=== PATIENT | female | born 1930 | race Caucasian/White ===

== ENCOUNTER → 2016-05-30 | Outpatient (CLI) | payer MEDICARE ==
[~2016-05-30] MED LIST: ASCO500T21 PO; CARV3.12T PO; CETI10TA20 PO; IBP200T PO; LEVO75TA4 PO; LOSA100T8 PO; LOSA1TAB15 PO; LVT.1T PO; MULT-63 PO
--- NOTE | 2016-05-30 17:00 | Diagnostic Imaging Report ---
INDICATION: Right knee pain. AP, oblique, and lateral views of the right knee are obtained. There is mild medial and lateral joint space narrowing with osteophyte formation. There is mild patellofemoral spurring. There appears to be a small joint effusion. There is no acute fracture or acute bony abnormality. There are vascular calcifications noted. 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 Small joint effusion is present. Dictated by: Dictated on workstation # [id number]
== END ==
LOC: RAD 14:49
PROVIDERS: ATTEND Family Medicine
DX: M15.0 Primary generalized (osteo)arthritis (principal); M17.11 Unilateral primary osteoarthritis, right knee
CPT/HCPCS: 73562

== ENCOUNTER → 2016-05-30 | Outpatient (REF) | payer MEDICARE ==
[2016-05-30 15:49] LABS: BASOPHILS % (AUTO) 1 % (0-2); EOSINOPHILS # (AUTO) 0.4 10^3uL; EOSINOPHILS % (AUTO) 7 % (0-4); MEAN CORPUSCULAR HGB CONC 34.2 g/dL (31.0-37.0); MEAN CORPUSCULAR VOLUME 92 FL (80-100); MEAN PLATELET VOLUME 11.2 FL (6.0-9.5); MONOCYTES # (AUTO) 0.5 X10^3; MONOCYTES % (AUTO) 8 % (3-11); NEUTROPHILS # (AUTO) 3.8 X10^3; NEUTROPHILS % (AUTO) 67 % (51-67); PLATELET COUNT 266 10^3uL (150-450); WHITE BLOOD COUNT 5.64 10^3uL (4.0-11.0)
[2016-05-30 15:56] LABS: ALBUMIN 4.1 g/dL (3.4-5.0); ANION GAP 14.2 MEQ/L (3-15); CALCULATED IONIZED CALCIUM 4.5 mg/dL (3.8-4.6); TOTAL PROTEIN 6.5 g/dL (6.4-8.5)
[2016-05-30 16:09] LABS: MEAN CORPUSCULAR HEMOGLOBIN 31.5 PG (26.0-34.0)
== END ==
LOC: LAB 15:21
PROVIDERS: ATTEND Family Medicine
DX: I10 Essential (primary) hypertension (principal); I71.4 Abdominal aortic aneurysm, without rupture; E03.8 Other specified hypothyroidism
CPT/HCPCS: 80053; 84443; 85025

== ENCOUNTER → 2016-06-02 | Outpatient (CLI) | payer MEDICARE | LOC: RT 14:06 | PROVIDERS: ATTEND Family Medicine | DX: I10 Essential (primary) hypertension (principal); R00.2 Palpitations | CPT/HCPCS: 93225 ==

== ENCOUNTER → 2016-06-12 | Outpatient (REF) | payer MEDICARE ==
[2016-06-12 16:21] LABS: ANION GAP 14.6 MEQ/L (3-15)
== END ==
LOC: LAB 15:26
PROVIDERS: ATTEND Family Medicine
DX: I10 Essential (primary) hypertension (principal); Z13.0 Encounter for screening for diseases of the blood and blood-forming organs and certain disorders involving the immune mechanism
CPT/HCPCS: 80048

== ENCOUNTER → 2016-06-20 | Outpatient (CLI) | payer MEDICARE | LOC: RAD 12:52 | PROVIDERS: ATTEND Family Medicine | DX: J32.0 Chronic maxillary sinusitis (principal); H65.493 Other chronic nonsuppurative otitis media, bilateral | CPT/HCPCS: 70486 ==

== ENCOUNTER → 2016-07-21 | Outpatient (CLI) | payer MEDICARE | LOC: LAB 10:39 | PROVIDERS: ATTEND Family Medicine | DX: Z51.81 Encounter for therapeutic drug level monitoring (principal); I47.1 Supraventricular tachycardia; E87.1 Hypo-osmolality and hyponatremia | CPT/HCPCS: 36415; 80048; 80162 ==

== ENCOUNTER → 2016-08-23 | Outpatient (REF) | payer MEDICARE | LOC: LAB 14:58 | PROVIDERS: ATTEND Family Medicine | DX: I47.1 Supraventricular tachycardia (principal) | CPT/HCPCS: 80162 ==

== ENCOUNTER → 2016-08-29 | Outpatient (CLI) | payer MEDICARE ==
--- NOTE | 2016-08-29 10:58 | Diagnostic Imaging Report ---
PROCEDURE: US abdomen complete. TECHNIQUE: Multiple real-time grayscale images were obtained over the abdomen in various projections. INDICATION: Abdominal wall mass periumbilical region. History of previous hernia repair in this region. FINDINGS: Real-time imaging shows an echogenic structure measuring approximately 2 cm along the intra-abdominal rectus muscle. There is no obvious recurrent hernia. Liver appears normal. Bile ducts are not dilated. Common duct measures 3 mm. Gallbladder appears normal. Portal and hepatic vein are patent. Pancreas is not well visualized. The spleen appear normal. Aorta and vena cava are normal. The kidneys appear normal. The right kidney measures 8.4 x 3.8 x 5.2 cm. Left kidney measures 8.2 x 3.8 x 4.3 cm. IMPRESSION: 1. Echogenic area measuring approximately 2 cm along the anterior rectus muscle in the periumbilical region. This is nonspecific and findings on ultrasound. This could represent scarring from possible granuloma reaction. No obvious recurrent hernia. Would consider CT scan of the abdomen for further detail. 2. Gallbladder and liver appear normal as do the kidneys. Dictated by: Dictated on workstation # [id number]
== END ==
LOC: RAD 09:59
PROVIDERS: ATTEND Family Medicine
DX: R19.06 Epigastric swelling, mass or lump (principal)
CPT/HCPCS: 76700

== ENCOUNTER → 2016-10-13 | Outpatient (REF) | payer MEDICARE ==
[2016-10-13 16:30] LABS: BASOPHILS % (AUTO) 1 % (0-2); EOSINOPHILS # (AUTO) 0.4 10^3uL; EOSINOPHILS % (AUTO) 5 % (0-4); LYMPHOCYTES # (AUTO) 0.9 X10^3; MEAN CORPUSCULAR HEMOGLOBIN 31.3 PG (26.0-34.0); MEAN CORPUSCULAR HGB CONC 33.3 g/dL (31.0-37.0); MEAN CORPUSCULAR VOLUME 94 FL (80-100); MONOCYTES # (AUTO) 0.5 X10^3; MONOCYTES % (AUTO) 7 % (3-11); NEUTROPHILS % (AUTO) 73 % (51-67); PLATELET COUNT 263 10^3uL (150-450); WHITE BLOOD COUNT 6.88 10^3uL (4.0-11.0)
[2016-10-13 16:41] LABS: BILIRUBIN,URINE Negative (Negative); CLARITY,URINE Clear; COLOR,URINE Yellow; GLUCOSE, URINE (UA) Negative (Negative); LEUKOCYTE ESTERASE ,URINE Negative (Negative); UROBILINOGEN,URINE 0.2 mg/dL (0.2-1.0)
[2016-10-13 16:59] LABS: ALBUMIN 4.1 g/dL (3.4-5.0); ANION GAP 12.6 MEQ/L (3-15); CALCULATED IONIZED CALCIUM 4.4 mg/dL (3.8-4.6); TOTAL PROTEIN 7.1 g/dL (6.4-8.5)
== END ==
LOC: LAB 16:10
PROVIDERS: ATTEND Family Medicine
DX: R10.31 Right lower quadrant pain (principal); I35.1 Nonrheumatic aortic (valve) insufficiency; K59.09 Other constipation; E03.9 Hypothyroidism, unspecified
CPT/HCPCS: 80053; 80162; 81003; 85025